=== PATIENT | female | born 1965 | race Caucasian/White ===

== ENCOUNTER → 2017-06-25 | Outpatient (CLI) | payer BC ==
--- NOTE | 2017-06-25 11:31 | MM ---
Reason for exam: additional evaluation requested from abnormal screening. Last mammogram was performed 1 month ago. History: Patient is postmenopausal and history of other cancer. Physical Findings: Nurse did not find any significant physical abnormalities on exam. MG Work Up Mamm w CAD RT ML, spot compression CC, and spot compression MLO view(s) were taken of the right breast. Prior study comparison: June 04, 2017, bilateral MG screening mammo w CAD. May 03, 2016, bilateral MG screening mammo w CAD. October 17, 2014, bilateral MG screening mammo w CAD. The breast tissue is heterogeneously dense. This may lower the sensitivity of mammography. Focal asymmetry upper outer quadrant of the right breast 8-9cm from nipple persists on additional views. These results were verbally communicated with the patient and result sheet given to the patient on 06/25/17. ASSESSMENT: Incomplete: need additional imaging evaluation, BI-RAD 0 RECOMMENDATION: Ultrasound of the right breast.
--- NOTE | 2017-06-25 11:37 | USB ---
Reason for exam: additional evaluation requested from abnormal screening. History: Patient is postmenopausal and history of other cancer. US Breast Workup Limited RT Right breast ultrasound demonstrates a 0.4 x 0.3 x 0.5cm round, hypoechoic lesion at 10 o'clock. These results were verbally communicated with the patient and result sheet given to the patient on 06/25/17. ASSESSMENT: Suspicious, BI-RAD 4 RECOMMENDATION: Ultrasound core biopsy of the right breast. (10 o'clock). Called Dr. Sheridan with mammographic findings and has scheduled an appointment for the patient for 07/07/17 at 10:[address] Dutta. Biopsy scheduled for 06/27/17 at 11:20. PRELIMINARY REPORT CALLED AND FAXED TO DR. DUTTA ON 06/25/17.
== END | disposition home or self-care (01) ==
LOC: RADMAMWWP 07:35
PROVIDERS: ATTEND Obstetrics & Gynecology
DX: R92.8 Other abnormal and inconclusive findings on diagnostic imaging of breast (principal)
CPT/HCPCS: 76642; G0206

== ENCOUNTER → 2017-06-27 | Day surgery (SDC) | payer BC ==
[2017-06-27 10:54] VITALS: RESP 16; BMI 38.0
[2017-06-27 11:57] VITALS: BP 131/83; PULSE 71; TEMP 98.1
--- NOTE | 2017-06-27 12:25 | USB ---
EXAMINATION TYPE: US biopsy breast VAD RT, Postbiopsy diagnostic mammo RT wo CAD DATE OF EXAM: 06/27/2017 CLINICAL HISTORY: 51-year-old female referred for biopsy for R92.8 Abn mammogram. TECHNIQUE: Ultrasound guided core biopsy of the right breast. COMPARISON: 06/25/2017, 06/04/2017, 05/03/2016 FINDINGS: The procedure of ultrasound guided core biopsy was explained to the patient. Benefits, alternatives, and risks were discussed. An informed consent was then obtained. The patient was placed in supine positioning for imaging and for the procedure. The overlying skin was prepped and draped in usual sterile fashion. Lidocaine buffered with bicarbonate was used as anesthetic into the skin and subcutaneous tissue up to area of concern in the 10:00 zone B/C right breast. The small 5 x 4 x 4 mm hypoechoic lesion is again identified. Currently, this has a somewhat lobulated or reniform appearance. Under ultrasound guidance, a 13-gauge vacuum assisted Mammotome Elite biopsy gun device was used to obtain 4 core samples. Following this, a ribbon clip was left in lesion. Postprocedure mammogram shows clip close to but not at the site of questioned mammographic finding which can be reassessed at 6 month follow-up if benign results. The patient tolerated the procedure well without any immediate complication. The patient was kept in the radiology department for short stay after the procedure and then discharged home in stable condition. IMPRESSION: Successful, uncomplicated ultrasound guided core biopsy of area of concern in the 10:00 right breast. A cystic lesion versus lymph node is suspected. Full pathology results to follow. RECOMMENDATION: 1. Pathology pending. 2. If benign results, six-month follow-up diagnostic right breast mammogram is recommended. Pathology Results: Benign BREAST, RIGHT, 10:00, CORE BIOPSY: BENIGN LYMPH NODE. FIBROCYSTIC CHANGES INCLUDING CYSTS AND FIBROSIS. Recommendation Follow up mammogram of the right breast in 6 months. EDDD
== END ==
LOC: RADUSWWP 10:36
PROVIDERS: ATTEND Surgery
DX: N60.11 Diffuse cystic mastopathy of right breast (principal); N60.31 Fibrosclerosis of right breast
CPT/HCPCS: 88305; 19083; G0206; A4648; J2001

== ENCOUNTER → 2018-06-08 | Outpatient (CLI) | payer BC ==
--- NOTE | 2018-06-10 10:51 | MM ---
Reason for exam: screening (asymptomatic). Last mammogram was performed 11 months ago. History: Patient is postmenopausal and history of other cancer. Benign US biopsy breast VAD RT of the right breast, June 27, 2017. Physical Findings: A clinical breast exam by your physician is recommended on an annual basis and results should be correlated with mammographic findings. MG 3D Screening Mammo W/Cad Bilateral CC and MLO view(s) were taken. Prior study comparison: June 27, 2017, right breast MG diagnostic mammo RT wo CAD. June 25, 2017, right breast MG work up mamm w CAD RT. The breast tissue is heterogeneously dense. This may lower the sensitivity of mammography. Previous mammotome biopsy in the right breast. No significant changes when compared with prior studies. ASSESSMENT: Benign, BI-RAD 2 RECOMMENDATION: Routine screening mammogram of both breasts in 1 year.
== END ==
LOC: RADMAMWWP 12:48
PROVIDERS: ATTEND Obstetrics & Gynecology
DX: Z12.31 Encounter for screening mammogram for malignant neoplasm of breast (principal)
CPT/HCPCS: 77063; 77067

== ENCOUNTER → 2019-07-02 | Outpatient (CLI) | payer BC ==
--- NOTE | 2019-07-02 09:13 | MM ---
Reason for exam: screening (asymptomatic). Last mammogram was performed 1 year and 1 month ago. History: Patient is postmenopausal and history of other cancer. Benign US biopsy breast VAD RT of the right breast, June 27, 2017. Physical Findings: A clinical breast exam by your physician is recommended on an annual basis and results should be correlated with mammographic findings. MG 3D Screening Mammo W/Cad Bilateral CC and MLO view(s) were taken. Prior study comparison: June 08, 2018, bilateral MG 3d screening mammo w/cad. June 27, 2017, right breast MG diagnostic mammo RT wo CAD. The breast tissue is heterogeneously dense. This may lower the sensitivity of mammography. Previous mammotome biopsy in the right breast. Asymmetric breast tissue right breast, stable and left posterior inner lower breast increased with questionable obscured lesion. ASSESSMENT: Incomplete: need additional imaging evaluation, BI-RAD 0 RECOMMENDATION: Ultrasound of the left breast. [facility] will attempt to contact patient to return for ultrasound.
== END ==
LOC: RADMAMWWP 07:32
PROVIDERS: ATTEND Obstetrics & Gynecology
DX: Z12.31 Encounter for screening mammogram for malignant neoplasm of breast (principal)
CPT/HCPCS: 77063; 77067

== ENCOUNTER → 2019-07-16 | Outpatient (CLI) | payer SELFPAY ==
--- NOTE | 2019-07-16 10:19 | USB ---
Reason for exam: additional evaluation requested from abnormal screening. History: Patient is postmenopausal and history of other cancer. Benign US biopsy breast VAD RT of the right breast, June 27, 2017. Physical Findings: Nurse did not find any significant physical abnormalities on exam. US Breast Workup Limited LT Left limited breast ultrasound including focal area of concern, retroareolar and axilla demonstrates no cystic or solid lesion seen. Medial left breast asymmetry on mammogram correlates to dense breast tissue at 10:00 mammographically stable back to 2013. These results were verbally communicated with the patient and result sheet given to the patient on 07/16/19. ASSESSMENT: Benign, BI-RAD 2 RECOMMENDATION: Return to routine screening mammogram schedule for both breasts.
== END | disposition home or self-care (01) ==
LOC: RADUSWWP 06:56
PROVIDERS: ATTEND Obstetrics & Gynecology
DX: R92.8 Other abnormal and inconclusive findings on diagnostic imaging of breast (principal)

== ENCOUNTER → 2020-03-02 | Outpatient (CLI) | payer BC ==
--- NOTE | 2020-03-02 14:40 | NM ---
EXAMINATION TYPE: NM bone/joint limited DATE OF EXAM: 03/02/2020 COMPARISON: No plain film supplied for correlation. HISTORY: Pain in left knee TECHNIQUE: After the intravenous administration of 26 mCi Tc 99m MDP. Images acquired 3 hours post injection. Multiple views of knees are submitted. Photopenic defect within the left knee is consistent with postop knee arthroplasty change. Along the proximal tibia there is abnormal increased activity noted. Uptake in the right patella may be due to arthropathy change. IMPRESSION: Correlate for prosthetic loosening, infection not excluded
== END | disposition home or self-care (01) ==
LOC: RADNMMAIN 09:51
PROVIDERS: ATTEND Orthopaedic Surgery
DX: M25.562 Pain in left knee (principal)
CPT/HCPCS: 78300; A9503

== ENCOUNTER → 2020-03-27 | Outpatient (CLI) | payer BC ==
[2020-03-27 15:27] LABS: Basophils % (A) 0 %; Eosinophils # (A) 0.5 k/uL (0-0.7); Eosinophils % (A) 8 %; HCT 43.2 % (34.0-46.0); Lymphocytes # (A) 2.6 k/uL (1.0-4.8); Lymphocytes % (A) 39 %; MCH 30.1 pg (25.0-35.0); MCHC 32.3 g/dL (31.0-37.0); MCV 93.1 fL (80.0-100.0); Mean Platelet Volume 6.7; Monocytes # (A) 0.3 k/uL (0-1.0); Monocytes % (A) 4 %; Neutrophils # (A) 3.1 k/uL (1.3-7.7); Neutrophils % (A) 47 %; Platelet Count 287 k/uL (150-450); RBC 4.64 m/uL (3.80-5.40); RDW 12.9 % (11.5-15.5); WBC 6.7 k/uL (3.8-10.6)
[2020-03-27 16:04] LABS: ALT 67 U/L (4-34); AST 50 U/L (14-36); African American GFR (CKD) >90 (>60 ml/min/1.73 sqM); Albumin 4.5 g/dL (3.5-5.0); Albumin/Globulin Ratio 1.7; Alkaline Phosphatase 114 U/L (38-126); Anion Gap 10 mmol/L; Blood Urea Nitrogen 10 mg/dL (7-17); Calcium 9.3 mg/dL (8.4-10.2); Carbon Dioxide 27 mmol/L (22-30); Chloride 103 mmol/L (98-107); Globulin 2.6 g/dL; Glucose 133 mg/dL (74-99); Non-African American GFR(CKD) >90 (>60 ml/min/1.73 sqM); Potassium 3.7 mmol/L (3.5-5.1); Sodium 140 mmol/L (137-145); Total Bilirubin 0.5 mg/dL (0.2-1.3); Total Protein 7.1 g/dL (6.3-8.2)
[2020-03-27 16:13] LABS: Appearance,Urine Clear (Clear); Bilirubin,Urine Negative (Negative); Blood,Urine Negative (Negative); Color,Urine Light Yellow; Glucose,Urine (UA) Negative (Negative); Ketones,Urine Negative (Negative); Leukocyte Esterase,Urine Negative (Negative); Nitrite,Urine Negative (Negative); PH, Urine 5.5 (5.0-8.0); Protein,Urine Negative (Negative); Specific Gravity,Urine 1.008 (1.001-1.035); Urobilinogen,Urine <2.0 mg/dL (<2.0)
== END | disposition home or self-care (01) ==
LOC: LABWHC1 13:33
PROVIDERS: ATTEND Nurse Practitioner Family
DX: R10.32 Left lower quadrant pain (principal)
CPT/HCPCS: 36415; 80053; 81003; 85025

== ENCOUNTER → 2020-04-07 | Outpatient (CLI) | payer BC ==
--- NOTE | 2020-04-07 09:58 | US ---
EXAMINATION TYPE: US pelvis complete transvag DATE OF EXAM: 04/07/2020 COMPARISON: NONE CLINICAL HISTORY: 54-year-old female R10.32 Left lower quadrant pain. Pain . TECHNIQUE: Transabdominal sonographic images of the pelvis were acquired. Transvaginal sonographic images were medically necessary to better assess the anatomy. FINDINGS: Sonography notes: Exams limited due to body habitus EXAM MEASUREMENTS: Uterus: 6.6 x 3.0 x 3.8 cm Endometrial Stripe: Not well visualized 1. Uterus: Anteverted and otherwise wnl. There is a small 4 mm cervical nabothian cyst. 2. Endometrium: Not well visualized 3. Right Ovary: Obscured by overlying bowel gas 4. Left Ovary: Obscured by overlying bowel gas 5. Bilateral Adnexa: wnl 6. Posterior cul-de-sac: wnl IMPRESSION: 1. Anteverted uterus. The endometrial stripe is not well delineated and may be very thin. Follow-up c an be considered to reassess the straight if indicated. 2. Neither ovary could be visualized due to adnexal bowel gas. 3. No cul-de-sac free fluid.
--- NOTE | 2020-04-07 11:39 | US ---
EXAMINATION TYPE: US abdomen complete DATE OF EXAM: 04/07/2020 COMPARISON: NONE CLINICAL HISTORY: 54-year-old female R94.5 Abnormal results of liver function studies. Pain. TECHNIQUE: Multiple sonographic images of the abdomen are obtained. FINDINGS: Research Physicist notes: Exam limited due to body habitus. EXAM MEASUREMENTS: Liver Length: 15 cm Gallbladder Wall: .2 cm CBD: .4 cm Spleen: 10.2 cm Right Kidney: 9.6 x 4.3 x 4.1 cm Left Kidney: 9.2 x 4.9 x 4.3 cm Pancreas: Obscured by bowel gas Liver: Increased attenuation unable to penetrate Gallbladder: No stones seen Evidence for sonographic Tyson's sign: No CBD: wnl Spleen: wnl Right Kidney: wnl Left Kidney: wnl Upper IVC: Limited due to liver attenuation Abd Aorta: wnl IMPRESSION: 1. Severe hepatic steatosis. This secondarily limits assessment for focal lesions. 2. No gallstones or biliary ductal dilatation.
== END | disposition home or self-care (01) ==
LOC: RADUSWWP 06:55
PROVIDERS: ATTEND Family Medicine
DX: K76.0 Fatty (change of) liver, not elsewhere classified (principal); N85.4 Malposition of uterus
CPT/HCPCS: 76700; 76830; 76856

== ENCOUNTER → 2020-05-23 | Outpatient (CLI) | payer BC ==
[2020-05-23 07:50] LABS: INR 0.9 (<1.2); Prothrombin Time 9.9 sec (9.0-12.0)
[2020-05-23 07:51] LABS: Partial Thromboplastin Time 24.3 sec (22.0-30.0)
[2020-05-23 07:55] LABS: Appearance,Urine Cloudy (Clear); Bilirubin,Urine Negative (Negative); Blood,Urine Negative (Negative); Color,Urine Yellow; Glucose,Urine (UA) Negative (Negative); Ketones,Urine Negative (Negative); Leukocyte Esterase,Urine Negative (Negative); Mucus,Urine Few /hpf; Nitrite,Urine Negative (Negative); Protein,Urine Negative (Negative); RBC,Urine 4 /hpf (0-5); Specific Gravity,Urine 1.024 (1.001-1.035); Squamous Epithelial Cell,Urine 4 /hpf (0-4); Urobilinogen,Urine <2.0 mg/dL (<2.0); WBC,Urine 3 /hpf (0-5)
== END | disposition home or self-care (01) ==
LOC: LABPAT 07:01
PROVIDERS: ATTEND Orthopaedic Surgery
DX: Z01.818 Encounter for other preprocedural examination (principal); Z01.812 Encounter for preprocedural laboratory examination
CPT/HCPCS: 81001; 85610; 85730; 87070

== ENCOUNTER → 2020-11-13 | Outpatient (CLI) | payer BC ==
--- NOTE | 2020-11-14 11:34 | MM ---
Reason for exam: screening (asymptomatic). Last mammogram was performed 1 year and 4 months ago. History: Patient is postmenopausal and history of other cancer. Benign US biopsy breast VAD RT of the right breast, June 27, 2017. Physical Findings: A clinical breast exam by your physician is recommended on an annual basis and results should be correlated with mammographic findings. MG 3D Screening Mammo W/Cad Bilateral CC and MLO view(s) were taken. Prior study comparison: July 02, 2019, bilateral MG 3d screening mammo w/cad. June 08, 2018, bilateral MG 3d screening mammo w/cad. The breast tissue is heterogeneously dense. This may lower the sensitivity of mammography. Finding: There are indeterminate calcifications in the posterior position of the right breast on CC view. New finding since July 02, 2019 and June 08, 2018. ASSESSMENT: Incomplete: need additional imaging evaluation, BI-RAD 0 RECOMMENDATION: Special view mammogram of the right breast. [facility] will attempt to contact patient to return for supplemental views.
== END | disposition home or self-care (01) ==
LOC: RADMAMWWP 07:11
PROVIDERS: ATTEND Obstetrics & Gynecology
DX: Z12.31 Encounter for screening mammogram for malignant neoplasm of breast (principal); Z78.0 Asymptomatic menopausal state
CPT/HCPCS: 77063; 77067

== ENCOUNTER → 2020-11-16 | Outpatient (CLI) | payer BC ==
--- NOTE | 2020-11-16 12:26 | MM ---
Reason for exam: additional evaluation requested from abnormal screening. Last mammogram was performed less than 1 month ago. History: Patient is postmenopausal and history of other cancer. Benign US biopsy breast VAD RT of the right breast, June 27, 2017. Physical Findings: Nurse did not find any significant physical abnormalities on exam. MG 3D Work Up W/Cad RT CC with magnification, LM with magnification, and LM view(s) were taken of the right breast. Prior study comparison: November 13, 2020, bilateral MG 3d screening mammo w/cad. July 02, 2019, bilateral MG 3d screening mammo w/cad. The breast tissue is heterogeneously dense. This may lower the sensitivity of mammography. Finding: There are intermediate concern, suspicious grouped/clustered, fine, linear arranged calcifications in the lower outer quadrant, posterior position of the right breast 11cm from the nipple. New finding since July 02, 2019. These results were verbally communicated with the patient and result sheet given to the patient on 11/16/20. ASSESSMENT: Suspicious, BI-RAD 4 RECOMMENDATION: Stereotactic core biopsy of the right breast. (lower outer quadrant) Called Dr. Sheridan's office with mammographic findings and has scheduled an appointment for the patient for 01/04/21 at 11:[address] Medina. Biopsy scheduled for 12/11/20 at 10:00. PRELIMINARY REPORT CALLED AND FAXED TO DR. MEDINA ON 11/16/20.
== END | disposition home or self-care (01) ==
LOC: RADMAMWWP 10:50
PROVIDERS: ATTEND Obstetrics & Gynecology
DX: R92.1 Mammographic calcification found on diagnostic imaging of breast (principal)
CPT/HCPCS: 77061; 77065

== ENCOUNTER → 2020-12-11 | Day surgery (SDC) | payer BC ==
[2020-12-11 09:42] VITALS: BP 128/79; PULSE 62; RESP 16; TEMP 98.1
--- NOTE | 2020-12-11 12:03 | MM ---
EXAMINATION TYPE: MG stereo VAD BX RT DATE OF EXAM: 12/11/2020 COMPARISON: 11/16/2020, 11/13/2020 CLINICAL HISTORY: Request for biopsy right lower outer quadrant calcifications TECHNIQUE: Stereotactic guided core biopsy of right breast. FINDINGS: The procedure of stereotactic guided core biopsy was explained to the patient. Benefits, alternatives, and risks were discussed. An informed consent was then obtained. The shortness pathway for biopsy was chosen. Shortness pathway was inferior approach. I performed the localization, and the remainder of the procedure. A vacuum assisted biopsy gun was used to obtain multiple core samples. The patient tolerated the procedure well without any immediate complication. The patient was kept in the radiology department for short stay after the procedure and then discharged home in stable condition. Targeted calcifications are identified in specimen mammogram. Post biopsy mammogram shows the clip to appear in satisfactory position relative to the targeted area of concern on the preprocedure images. IMPRESSION: SUCCESSFUL, UNCOMPLICATED STEREOTACTIC GUIDED CORE BIOPSY OF AREA OF CONCERN IN THE right BREAST, FULL PATHOLOGY RESULTS TO FOLLOW. Pathology Results: Benign RIGHT BREAST, STEREOTACTIC CORE BIOPSY: Fibrocystic changes including columnar cell hyperplasia and sclerosing adenosis with calcifications, fibrosis, cysts and apocrine metaplasia. Recommendation Follow up mammogram of the right breast in 6 months. NISREEN
== END ==
LOC: RADMAMWWP 08:49
PROVIDERS: ATTEND Surgery
DX: N60.11 Diffuse cystic mastopathy of right breast (principal); N60.21 Fibroadenosis of right breast
CPT/HCPCS: 88305; 19081; A4648; J2001

== ENCOUNTER → 2021-05-24 | Outpatient (CLI) | payer BC ==
[2021-05-24 11:29] LABS: Basophils # (A) 0.04 X 10*3/uL (0.00-0.10); Basophils % (A) 0.8 %; Eosinophils # (A) 0.48 X 10*3/uL (0.04-0.35); Eosinophils % (A) 9.2 %; HCT 39.5 % (37.2-46.3); HGB 12.6 g/dL (12.0-15.0); Lymphocytes # (A) 2.02 X 10*3/uL (0.90-5.00); Lymphocytes % (A) 38.7 %; MCH 29.4 pg (27.0-32.0); MCHC 31.9 g/dL (32.0-37.0); MCV 92.3 fL (80.0-97.0); Mean Platelet Volume 9.6 fL (9.5-12.2); Monocytes # (A) 0.39 X 10*3/uL (0.20-1.00); Monocytes % (A) 7.5 %; Neutrophils # (A) 2.27 X 10*3/uL (1.80-7.70); Neutrophils % (A) 43.4 %; Platelet Count 337 X 10*3/uL (140-440); RBC 4.28 X 10*6/uL (4.10-5.20); RDW 13.2 % (11.5-14.5); WBC 5.22 X 10*3/uL (4.50-10.00)
[2021-05-24 14:54] LABS: Erythrocyte Sedimentation Rate 45 mm/Hr (0-30)
== END | disposition home or self-care (01) ==
LOC: LABWHC1 07:12
PROVIDERS: ATTEND Orthopaedic Surgery
DX: Z09 Encounter for follow-up examination after completed treatment for conditions other than malignant neoplasm (principal); M25.562 Pain in left knee; M25.662 Stiffness of left knee, not elsewhere classified; I10 Essential (primary) hypertension; Z96.652 Presence of left artificial knee joint
CPT/HCPCS: 36415; 85025; 85652; 86140

== ENCOUNTER → 2021-06-11 | Outpatient (CLI) | payer BC ==
--- NOTE | 2021-06-12 07:35 | MM ---
Reason for exam: follow-up at short interval from prior study. Last mammogram was performed 7 months ago. History: Patient is postmenopausal and history of other cancer. Benign MG stereo VAD BX RT of the right breast, December 11, 2020. Benign US biopsy breast VAD RT of the right breast, June 27, 2017. Physical Findings: Nurse did not find any significant physical abnormalities on exam. MG 3D Diag Mammo W/Cad RT CC and MLO view(s) were taken of the right breast. Prior study comparison: November 16, 2020, right breast MG 3d work up w/cad RT. November 13, 2020, bilateral MG 3d screening mammo w/cad. The breast tissue is heterogeneously dense. This may lower the sensitivity of mammography. Previous mammotome biopsy in the right breast. These results were verbally communicated with the patient and result sheet given to the patient on 06/11/21. ASSESSMENT: Benign, BI-RAD 2 RECOMMENDATION: Follow-up diagnostic mammogram of both breasts in 6 months.
== END | disposition home or self-care (01) ==
LOC: RADMAMWWP 14:49
PROVIDERS: ATTEND Surgery
DX: R92.2 Inconclusive mammogram (principal); Z78.0 Asymptomatic menopausal state
CPT/HCPCS: 77061; 77065

== ENCOUNTER 2021-08-18 15:52 | Emergency (ER) | payer BC ==
[2021-08-18] MEDS ORDERED: SODIUM CHLORIDE 0.9% 1,000 ML IV STA (18:30)
[2021-08-18] MEDS ORDERED: HYDROmorphone 0.5 MG/0.5 ML SYRINGE IVP STA (18:30)
[2021-08-18] MEDS ORDERED: ONDANSETRON 4 MG/2 ML VIAL IVP STA (18:30)
[2021-08-18 19:31] LABS: ALT 30 U/L (4-34); AST 25 U/L (14-36); African American GFR (CKD) >90 (>60 ml/min/1.73 sqM); Albumin 4.3 g/dL (3.5-5.0); Alkaline Phosphatase 175 U/L (38-126); Anion Gap 9 mmol/L; Blood Urea Nitrogen 8 mg/dL (7-17); Calcium 9.1 mg/dL (8.4-10.2); Carbon Dioxide 24 mmol/L (22-30); Chloride 102 mmol/L (98-107); Glucose 114 mg/dL (74-99); Lipase 56 U/L (23-300); Non-African American GFR(CKD) >90 (>60 ml/min/1.73 sqM); Potassium 3.8 mmol/L (3.5-5.1); Sodium 135 mmol/L (137-145); Total Bilirubin 0.8 mg/dL (0.2-1.3); Total Protein 7.3 g/dL (6.3-8.2)
[2021-08-18 19:34] LABS: Appearance,Urine Clear (Clear); Basophils % (A) 0 %; Bilirubin,Urine Negative (Negative); Blood,Urine Negative (Negative); Color,Urine Light Yellow; Eosinophils # (A) 0.2 k/uL (0-0.7); Eosinophils % (A) 2 %; Glucose,Urine (UA) Negative (Negative); HCT 42.6 % (34.0-46.0); HGB 14.1 gm/dL (11.4-16.0); Ketones,Urine Negative (Negative); Leukocyte Esterase,Urine Negative (Negative); Lymphocytes # (A) 1.6 k/uL (1.0-4.8); Lymphocytes % (A) 13 %; MCH 30.8 pg (25.0-35.0); MCHC 33.2 g/dL (31.0-37.0); MCV 92.8 fL (80.0-100.0); Mean Platelet Volume 6.8; Monocytes # (A) 0.5 k/uL (0-1.0); Monocytes % (A) 4 %; Neutrophils # (A) 9.7 k/uL (1.3-7.7); Neutrophils % (A) 79 %; Nitrite,Urine Negative (Negative); PH, Urine 5.5 (5.0-8.0); Platelet Count 340 k/uL (150-450); Protein,Urine Negative (Negative); RBC 4.59 m/uL (3.80-5.40); RDW 13.1 % (11.5-15.5); Specific Gravity,Urine 1.012 (1.001-1.035); Urobilinogen,Urine <2.0 mg/dL (<2.0); WBC 12.3 k/uL (3.8-10.6)
--- NOTE | 2021-08-18 19:49 | CT ---
EXAMINATION TYPE: CT abdomen pelvis w con CT DLP: 1332.3 mGycm, Automated exposure control for dose reduction was used. DATE OF EXAM: 08/18/2021 7:37 PM COMPARISON: None CLINICAL INDICATION:Female, 55 years old with history of abdominal pain, left sided abdominal pain TECHNIQUE: Standard CT of the abdomen and pelvis following the administration of 100 cc of Isovue 3 00 IV contrast material. Coronal and sagittal reformats were performed. FINDINGS: LOWER CHEST: Unremarkable ABDOMEN LIVER: Unremarkable GALLBLADDER AND BILE DUCTS: Unremarkable. PANCREAS: Unremarkable. SPLEEN: Unremarkable. ADRENAL GLANDS: Unremarkable. KIDNEYS AND URETERS: No evidence of hydronephrosis or renal calculus. The ureters are unremarkable. PELVIS BLADDER: Incompletely distended but grossly unremarkable. REPRODUCTIVE: Unremarkable. ABDOMEN & PELVIS STOMACH AND BOWEL: Viscera segment of bowel wall thickening involving the sigmoid colon wall measurin g up to approximately 11 mm. Additional scattered diverticula are seen in segment. There is surroundi ng inflammatory changes. No evidence of organizing fluid collection or free air. No evidence of bowel obstruction. PERITONEUM: No evidence of pneumoperitoneum or free fluid. VASCULATURE: No evidence of aortic aneurysm. MUSCULOSKELETAL: Grade 2 anterolisthesis of L5 on S1 with bilateral pars interarticularis defects. Mi nimal multilevel degenerative disc disease changes. LYMPH NODES: No gross evidence for lymphadenopathy. SOFT TISSUE/ABDOMINAL WALL: Unremarkable IMPRESSION: 1. Acute uncomplicated sigmoid colon diverticulitis/colitis. Short segment of bowel wall thickening i s also present. Dedicated colonoscopy after treatment is recommended to exclude underlying malignancy . 2. Grade 2 anterolisthesis of L5 and S1 with pars interarticularis defects bilaterally.
[2021-08-18] MEDS ORDERED: LEVOFLOXACIN 500 MG TAB PO STA (20:40)
[2021-08-18] MEDS ORDERED: traMADol 50 MG STARTER PACK 3 TAB BTL PO STA (20:58)
--- NOTE | 2021-08-18 20:58 | ED ---
General Adult HPI - General Chief complaint: Abdominal Pain Stated complaint: L side pain Time Seen by Provider: 08/18/21 17:41 Source: patient Mode of arrival: ambulatory Limitations: no limitations - History of Present Illness Initial comments: 55-year-old female presents to the emergency department with a 2 day history of left lower quadrant abdominal pain. States her symptoms are accompanied by nausea and mucousy stool. Patient reports a history of diverticulitis and states this discomfort is similar. States she has not taken anything to treat her symptoms at home. Denies fever, chills, chest pain, shortness of breath, constipation, diarrhea, dysuria, or hematuria. - Related Data Home Medications Medication Instructions Recorded Confirmed ALPRAZolam [Xanax] 0.25 mg PO HS 06/06/14 08/18/21 Albuterol Inhaler [Ventolin Hfa 2 puff INHALATION RT-QID PRN 06/02/20 08/18/21 Inhaler] Atorvastatin Calcium [Lipitor] 40 mg PO DAILY 06/02/20 08/18/21 Omalizumab [Xolair] 150 mg SQ Q30D 06/02/20 08/18/21 PARoxetine [Paxil] 10 mg PO DAILY 06/02/20 08/18/21 Metoprolol Succinate [Toprol XL] 25 mg PO DAILY 08/18/21 08/18/21 Previous Rx's Medication Instructions Recorded Moxifloxacin HCl 400 mg PO DAILY 10 Days #10 tab 08/18/21 Allergies Allergy/AdvReac Type Severity Reaction Status Date / Time Penicillins Allergy Severe Dyspnea, Verified 08/18/21 20:02 Hives Sulfa (Sulfonamide Allergy Severe Nausea & Verified 08/18/21 20:02 Antibiotics) Vomiting & Diarrhea, Fever Review of Systems ROS Statement: Those systems with pertinent positive or pertinent negative responses have been documented in the HPI. ROS Other: All systems not noted in ROS Statement are negative. Past Medical History Past Medical History: Asthma, Cancer, GERD/Reflux, Hyperlipidemia, Hypertension, Pneumonia Additional Past Medical History / Comment(s): HX OF SKIN CA, POSITIVE BLOOD IN STOOL. History of Any Multi-Drug Resistant Organisms: None Reported Past Surgical History: Orthopedic Surgery, Tubal Ligation, Uterine Ablation Additional Past Surgical History / Comment(s): LEFT KNEE ARTHROSCOPY, SINUS SURGERY. Total Lt knee 2016, REVISION OF TOTAL LEFT KNEE 06/23 Past Anesthesia/Blood Transfusion Reactions: No Reported Reaction Past Psychological History: Anxiety, Depression Smoking Status: Never smoker Past Alcohol Use History: Occasional Past Drug Use History: None Reported - Past Family History Father Family Medical History: Cancer Additional Family Medical History / Comment(s): throat and prostate cancer General Exam Limitations: no limitations (Well-developed, well-nourished female in no acute distress. Initial temperature 98.3, pulse 118, respirations 16, blood pressure 142/72, pulse ox 100% on room air.) General appearance: alert, in no apparent distress ENT exam: Present: normal exam, normal oropharynx, mucous membranes moist Respiratory exam: Present: normal lung sounds bilaterally. Absent: respiratory distress, wheezes, rales, rhonchi, stridor Cardiovascular Exam: Present: regular rate, normal rhythm, normal heart sounds. Absent: systolic murmur, diastolic murmur, rubs, gallop, clicks GI/Abdominal exam: Present: soft, tenderness (Mild left lower quadrant tenderness upon palpation), normal bowel sounds. Absent: distended, guarding, rebound, rigid Back exam: Absent: CVA tenderness (R), CVA tenderness (L) Neurological exam: Present: alert, oriented X3, CN II-XII intact Psychiatric exam: Present: normal affect, normal mood Skin exam: Present: warm, dry, intact, normal color. Absent: rash Course Vital Signs 08/18/21 08/18/21 15:55 21:38 Temperature 98.3 F 98.7 F Pulse Rate 118 H 108 H Respiratory 16 18 Rate Blood Pressure 142/72 150/96 O2 Sat by Pulse 100 99 Oximetry Medical Decision Making - Medical Decision Making 55-year-old female with a past medical history of diverticulitis presents to the emergency Department with complaints of left lower quadrant abdominal pain 2 days. Upon exam, patient is well-appearing with no active vomiting. The left lower quadrant is diffusely mildly tender upon palpation. Reports mucousy stools, though denies any bloody diarrhea. IV access was obtained, patient was given fluids, pain medicine, and nausea medicine with significant improvement. Laboratory studies were reviewed. Patient does have a mildly elevated white blood cell count. CT of the abdomen and pelvis was obtained showing acute uncomplicated sigmoid colon diverticulitis/colitis. Patient will be discharged home on oral antibiotics and instructed to follow up with her PCP for recheck. Declines need for any pain medication or antiemetic at home. Return parameters were discussed in detail. Patient verbalizes understanding and agrees with this plan. Patient's care was discussed with my attending Dr. Joyce. . - Lab Data Result diagrams: 08/18/21 19:07 08/18/21 19:07 Lab Results 08/18/21 08/18/21 08/18/21 Range/Units 19:07 19:07 19:07 WBC 12.3 H (3.8-10.6) k/uL RBC 4.59 (3.80-5.40) m/uL Hgb 14.1 (11.4-16.0) gm/dL Hct 42.6 (34.0-46.0) % MCV 92.8 (80.0-100.0) fL MCH 30.8 (25.0-35.0) pg MCHC 33.2 (31.0-37.0) g/dL RDW 13.1 (11.5-15.5) % Plt Count 340 (150-450) k/uL MPV 6.8 Neutrophils % 79 % Lymphocytes % 13 % Monocytes % 4 % Eosinophils % 2 % Basophils % 0 % Neutrophils # 9.7 H (1.3-7.7) k/uL Lymphocytes # 1.6 (1.0-4.8) k/uL Monocytes # 0.5 (0-1.0) k/uL Eosinophils # 0.2 (0-0.7) k/uL Basophils # 0.0 (0-0.2) k/uL Sodium 135 L (137-145) mmol/L Potassium 3.8 (3.5-5.1) mmol/L Chloride 102 (98-107) mmol/L Carbon Dioxide 24 (22-30) mmol/L Anion Gap 9 mmol/L BUN 8 (7-17) mg/dL Creatinine 0.65 (0.52-1.04) mg/dL Est GFR (CKD-EPI)AfAm >90 (>60 ml/min/1.73 sqM) Est GFR (CKD-EPI)NonAf >90 (>60 ml/min/1.73 sqM) Glucose 114 H (74-99) mg/dL Calcium 9.1 (8.4-10.2) mg/dL Total Bilirubin 0.8 (0.2-1.3) mg/dL AST 25 (14-36) U/L ALT 30 (4-34) U/L Alkaline Phosphatase 175 H (38-126) U/L Total Protein 7.3 (6.3-8.2) g/dL Albumin 4.3 (3.5-5.0) g/dL Lipase 56 (23-300) U/L Urine Color Light Yellow Urine Appearance Clear (Clear) Urine pH 5.5 (5.0-8.0) Ur Specific [place] 1.012 (1.001-1.035) Urine Protein Negative (Negative) Urine Glucose (UA) Negative (Negative) Urine Ketones Negative (Negative) Urine Blood Negative (Negative) Urine Nitrite Negative (Negative) Urine Bilirubin Negative (Negative) Urine Urobilinogen <2.0 (<2.0) mg/dL Ur Leukocyte Esterase Negative (Negative) - Radiology Data Radiology results: report reviewed, image reviewed CT of the abdomen and pelvis was obtained with contrast. Report was reviewed in its entirety. Impression per Dr. Barroso is #1 acute uncomplicated sigmoid colon diverticulitis/colitis. Short segment of bowel wall thickening is also present. Dedicated colonoscopy after treatment is recommended to exclude underlying malignancy. 2. Grade 2 anterolisthesis of L5 and S1 with pars interarticularis defects bilaterally. Disposition Clinical Impression: Diverticulitis Disposition: HOME SELF-CARE Condition: Stable Instructions (If sedation given, give patient instructions): Diverticulitis (ED) Additional Instructions: Take antibiotic as directed. Alternate Tylenol and Motrin as needed for pain. Modify diet to decrease bulky, difficult to digest foods. Follow-up with your PCP for a recheck on Friday. Return to the emergency department with any new, worsening, or concerning symptoms. Prescriptions: Moxifloxacin HCl 400 mg PO DAILY 10 Days #10 tab Is patient prescribed a controlled substance at d/c from ED?: No Referrals: Ender Godwin III, MD [Primary Care Provider] - 1-2 days Time of Disposition: 20:57
[2021-08-18 22:15] VITALS: BP 150/96; PULSE 108; RESP 18; TEMP 98.7
== END 2021-08-18 21:38 | disposition home or self-care (01) ==
LOC: EC 15:52
DX: K57.32 Diverticulitis of large intestine without perforation or abscess without bleeding (principal); J45.909 Unspecified asthma, uncomplicated; K21.9 Gastro-esophageal reflux disease without esophagitis; E78.5 Hyperlipidemia, unspecified; I10 Essential (primary) hypertension; F41.9 Anxiety disorder, unspecified; F32.A Depression, unspecified; Z88.0 Allergy status to penicillin; Z88.2 Allergy status to sulfonamides; Z85.820 Personal history of malignant melanoma of skin; Z98.51 Tubal ligation status
CPT/HCPCS: 99284; 96374; 96375; 36415; 80053; 83690; 85025; 81003; 74177; J2405; J1170; Q9967

== ENCOUNTER → 2022-02-08 | Outpatient (CLI) | payer BC ==
--- NOTE | 2022-02-11 11:35 | MM ---
Reason for Exam: Follow-up at short interval from prior study. Last mammogram was performed 1 year(s) and 3 month(s) ago. Patient History: Menarche at age 14. First Full-Term at age 18. Postmenopausal. Other cancer. 12/11/2020, Benign Core Biopsy on the right side. 06/27/2017, Benign Core Biopsy on the right side. Risk Values: Connie 5 year model risk: 1.3%. NCI Lifetime model risk: 7.8%. Tissue Density: The breast tissue is heterogeneously dense. This may lower the sensitivity of mammography. Findings: Analyzed By CAD. There are 2 biopsy clips in the right breast redemonstrated. Benign-appearing vascular calcifications bilaterally is again seen. Occasional scattered benign-appearing calcifications bilaterally are again seen. Small well-defined nodularity in the right breast posteriorly upper outer aspect is redemonstrated. No suspicious new mass or worrisome cluster of microcalcification bilaterally. Overall Assessment: Benign, BI-RAD 2 Management: Screening Mammogram of both breasts in 1 year. A clinical breast exam by your physician is recommended on an annual basis and results should be correlated with mammographic findings. This exam should not preclude additional follow-up of suspicious palpable abnormalities. Results were given to the patient verbally at the time of exam. Electronically signed and approved by: Erwin Barcenas M.D.
== END | disposition home or self-care (01) ==
LOC: RADMAMWWP 07:35
PROVIDERS: ATTEND Obstetrics & Gynecology
DX: R92.8 Other abnormal and inconclusive findings on diagnostic imaging of breast (principal); R92.1 Mammographic calcification found on diagnostic imaging of breast; Z78.0 Asymptomatic menopausal state
CPT/HCPCS: 77062; 77066